=== PATIENT | female | born 1985 | race Caucasian/White ===

== ENCOUNTER 2018-02-24 22:41 | Emergency (ER) | payer MEDICAID ==
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
[2018-02-24] MEDS ORDERED: 0.9 % SODIUM CHLORIDE 1,000 ML BAG IV ONE (23:13)
[2018-02-24 23:26] LABS: URINE APPEARANCE CLEAR; URINE BILIRUBIN NEGATIVE (NEGATIVE); URINE BLOOD NEGATIVE (NEGATIVE); URINE COLOR YELLOW; URINE GLUCOSE (UA) NEGATIVE (NEGATIVE); URINE KETONE NEGATIVE (NEGATIVE); URINE LEUKOCYTE ESTERASE NEGATIVE (NEGATIVE); URINE NITRITE NEGATIVE (NEGATIVE); URINE PROTEIN NEGATIVE (NEGATIVE); URINE UROBILINOGEN 0.2 E.U./dL (0.20 - 1.00)
[2018-02-24 23:27] LABS: HCG,QUALITATIVE URINE NEGATIVE (NEGATIVE)
[2018-02-24 23:46] LABS: GRAN % 60.6 % (47-80); HEMATOCRIT 44.3 % (35.0-47.0); HEMOGLOBIN 15.1 gm/dl (11.6-16.0); LYMPH % 34.3 % (16-45); MEAN CORPUSCULAR HEMOGLOBIN 30.7 pg (27-33); MEAN CORPUSCULAR HGB CONC 34.1 g/dl (32-36); MEAN PLATELET VOLUME 10.4 fl (7.4-10.4); MONO % 5.1 % (0-9); PLATELET COUNT 269 K/uL (130-400); RED BLOOD COUNT 4.92 M/uL (3.80-5.40); RED CELL DISTRIBUTION WIDTH 13.2 % (11.5-14.5); WHITE BLOOD COUNT W/O DIFF 11.2 K/uL (4.2-12.2)
[2018-02-25 00:02] LABS: BLOOD UREA NITROGEN 12 mg/dL (6-20); CREATININE 0.6 mg/dL (0.5-0.9); EST GLOMERULAR FILTRATION RATE > 60 mL/min; TOTAL PROTEIN 7.1 g/dL (6.6-8.7)
[2018-02-25 00:04] LABS: GLUCOSE,RANDOM 99 mg/dL (74-109)
[2018-02-25] MEDS ORDERED: KETOROLAC 30 MG/ML VIAL IVP ONE (00:04)
[2018-02-25] MEDS ORDERED: 0.9 % SODIUM CHLORIDE 1,000 ML BAG IV ONE (00:05)
[2018-02-25 00:07] LABS: ALBUMIN 4.7 g/dL (4.0-5.0); ALKALINE PHOSPHATASE 78 U/L (35-104); ALT/SGPT 13 U/L (<33); AST/SGOT 11 U/L (10.0-35.0); LIPASE 52 U/L (13-60)
--- NOTE | 2018-02-27 07:35 | RADIOLOGY REPORT ---
EXAM: CHEST HISTORY: LOWER CHEST PAIN FOR THREE WEEKS. TECHNIQUE: Two views of the chest were obtained. Comparison: None. FINDINGS: The heart is not enlarged and there is no mediastinal mass. No acute infiltrate or vascular congestion identified. IMPRESSION: NO ACUTE CARDIAC OR PULMONARY ABNORMALITY. JOB NUMBER: [id number] MTDD
--- NOTE | 2018-02-27 07:56 | CT SCAN REPORT ---
EXAM: CT OF THE ABDOMEN AND PELVIS HISTORY: LOWER ABDOMINAL PAIN. TECHNIQUE: CT of the abdomen and pelvis was performed without intravenous or oral contrast. Comparison: None. FINDINGS: The lung bases are unremarkable. There is a small hiatal hernia. The liver and spleen are unremarkable. No pancreatic mass or inflammatory change. The bile ducts are not dilated. The gallbladder is contracted. There are no calcified gallstones. No adrenal lesion. There are no renal or ureteral calculi. No contour deforming renal mass or hydronephrosis. No aortic aneurysm. No enlarged periaortic lymph nodes. No dilated bowel loops. The appendix is visualized. The appendix measures about 6.5 mm in diameter which is the upper limits of normal. No para- appendiceal inflammatory change seen. No focal fluid collection. No free air or free fluid. The uterus and ovaries are unremarkable. No pelvic mass, abscess or adenopathy. The osseous structures are unremarkable. IMPRESSION: 1. NO ACUTE ABDOMINAL OR PELVIC PROCESS IDENTIFIED. 2. THE APPENDIX IS NEAR THE UPPER LIMITS OF NORMAL FOR SIZE, BUT NO PARA- APPENDICEAL INFLAMMATORY CHANGE. NO CT EVIDENCE FOR APPENDICITIS. JOB NUMBER: [id number] [facility]
== END 2018-02-25 01:58 | disposition home or self-care (01) ==
LOC: ER 22:41
DX: E86.0 Dehydration (principal); R59.0 Localized enlarged lymph nodes; R07.89 Other chest pain; R10.30 Lower abdominal pain, unspecified; F17.210 Nicotine dependence, cigarettes, uncomplicated
CPT/HCPCS: 99284 ×2; 96374; 83690; 85025; 85651; 86140; 80053; 81003; 81025; 86308; 71046; 74176; J1885; J7030